=== PATIENT | female | born 1990 | race Caucasian/White ===

== ENCOUNTER 2020-02-20 10:46 | Outpatient (CLI) | payer OTHER ==
[2020-02-20 13:02] LABS: HEMATOCRIT 42.7 % (36-48); HEMOGLOBIN 14.3 g/dL (12.0-16.0); MEAN CORPUSCULAR HEMOGLOBIN 31 pg (27-31); MEAN CORPUSCULAR HGB CONC 33 % (32-36); MEAN CORPUSCULAR VOLUME 93 fL (79.0-98.0); PLATELET COUNT (AUTO) 338 K/uL (130-430); RED BLOOD CELL COUNT(AUTO) 4.58 MIL/uL (4.2-6.2); RED CELL DISTRIBUTION WIDTH 12.4 % (9.0-15.0); WHITE BLOOD COUNT (AUTO) 8.1 K/uL (4.8-10.8)
[2020-02-20 13:26] LABS: ALBUMIN 4.2 g/dL (3.4-4.8); CALCIUM 9.3 mg/dL (8.4-11.0); CREATININE 0.85 mg/dL (0.55-1.30); POTASSIUM 3.7 mmol/L (3.5-5.1); THYROID STIMULATING HORMONE 1.55 uIu/mL (0.34-4.82); TOTAL BILIRUBIN 0.5 mg/dL (0.0-1.0)
== END 2020-02-20 20:05 | disposition home or self-care (01) ==
LOC: SLB 10:46
PROVIDERS: ATTEND General Practice
DX: Z00.00 Encounter for general adult medical examination without abnormal findings (principal)
CPT/HCPCS: 36415; 80053; 80061; 82306; 83051; 84443-TC; 85014-TC; 85048; 85049-TC

== ENCOUNTER 2020-11-14 12:10 | Emergency (ER) | payer OTHER ==
[~2020-11-14] VITALS: Ht 170.2 cm; Wt 69.4 kg
[2020-11-14 12:16] VITALS: BP_SYST 120
[2020-11-14] MEDS ORDERED: ONDANSETRON HCL 4 MG/2 ML VIAL IVP ONE (12:45)
[2020-11-14 12:57] LABS: BASOPHILS % (AUTO) 0.3 % (0.0-2.0); EOSINOPHILS # (AUTO) 0.1 K/uL (0.0-0.4); EOSINOPHILS % (AUTO) 1.5 % (0.0-4.0); HEMATOCRIT 36.4 % (36-48); HEMOGLOBIN 12.8 g/dL (12.0-16.0); LYMPHOCYTES # (AUTO) 1.4 K/uL (1.0-5.5); LYMPHOCYTES % (AUTO) 16.1 % (20.5-51.5); MEAN CORPUSCULAR HEMOGLOBIN 32 pg (27-31); MEAN CORPUSCULAR HGB CONC 35 % (32-36); MEAN CORPUSCULAR VOLUME 91 fL (79.0-98.0); MONOCYTES # (AUTO) 0.5 K/uL (0.0-1.0); MONOCYTES % (AUTO) 5.1 % (1.7-9.3); NEUTROPHILS # (AUTO) 6.7 K/uL (1.8-7.7); PLATELET COUNT (AUTO) 315 K/uL (130-430); RED BLOOD CELL COUNT(AUTO) 3.99 MIL/uL (4.2-6.2); RED CELL DISTRIBUTION WIDTH 12.6 % (9.0-15.0); WHITE BLOOD COUNT (AUTO) 8.8 K/uL (4.8-10.8)
[2020-11-14 13:11] LABS: ANION GAP 10 (5-15); CHLORIDE 102 mmol/L (98-107); CREATININE 0.78 mg/dL (0.55-1.30); GLUCOSE 86 mg/dL (70-99); POTASSIUM 3.9 mmol/L (3.5-5.1); SODIUM SERUM 137 mmol/L (136-145); UREA NITROGEN, BLOOD 7 mg/dL (8-21)
[2020-11-14 13:17] LABS: GFR AFRICAN AMERICAN 112 mL/min (>90)
[2020-11-14 13:44] LABS: ACETONE, SERUM NEGATIVE (NEGATIVE)
[2020-11-14 13:46] LABS: ALANINE AMINOTRANSFERASE 28 U/L (12-78); ALBUMIN 3.5 g/dL (3.4-4.8); AMYLASE 59 U/L (0-100); ASPARTATE AMINOTRANSFERASE 16 U/L (10-37); HCG,QUANTITATIVE 87259 mIU/ML (0-6); LIPASE 63 U/L (73-393); TOTAL BILIRUBIN 0.4 mg/dL (0.0-1.0)
[2020-11-14] MEDS ORDERED: NACL 0.9% 1,000 ML IV ONE (14:15)
[2020-11-14] MEDS ORDERED: ONDA-8 TL (14:27)
[2020-11-14 15:00] LABS: BILIRUBIN,URINE NEGATIVE (NEGATIVE); BLOOD, URINE NEGATIVE (NEGATIVE); CLARITY/URINE CLEAR (CLEAR); COLOR,URINE YELLOW (YELLOW); GLUCOSE,URINE NEGATIVE (NEGATIVE); KETONES,URINE TRACE (NEGATIVE); LEUKOCYTE ESTERASE ,URINE 2+ (NEGATIVE); NITRITE, URINE NEGATIVE (NEGATIVE); PH,URINE 5.5 (5.0-8.0); PROTEIN URINE NEGATIVE (NEGATIVE); UROBILINOGEN,URINE 0.2 (0.2-1.0)
[2020-11-14 15:07] LABS: BACTERIA,URINE FEW /HPF (None Seen); MUCUS,URINE 1+ /LPF (None Seen); RBC,URINE 0-3 /HPF (0-3)
[2020-11-14 15:30] VITALS: BP_SYST 120
== END 2020-11-14 14:54 | disposition home or self-care (01) ==
LOC: SED 12:10
DX: O21.0 Mild hyperemesis gravidarum (principal); Z3A.12 12 weeks gestation of pregnancy
CPT/HCPCS: 36415; 76805; 80053; 81000; 81025; 82009; 82150; 83605; 83690; 84702; 85025; 87086; 96361; 96374; 99284; J2405; J7030

== ENCOUNTER 2020-11-17 16:01 | Observation (INO) | payer OTHER, SELFPAY ==
[~2020-11-17] VITALS: Ht 170.2 cm; Wt 69.4 kg
[~2020-11-17 16:01] MED LIST: ONDA-8 TL
--- NOTE | 2020-11-17 16:55 | NUR ---
Request for home health sent to [facility]-they will need insurance authorization to provide service-will be able to process [phone]
[2020-11-17] MEDS ORDERED: COMMUNICATION ORDER XX ONE (17:30)
--- NOTE | 2020-11-17 17:45 | NUR ---
ADMISSION: RECEIVED PT FROM HOME, DIRECT ADMIT, ALERT, ORIENTED X4, DX:FLUID VOLUME DEFICIT, R/T SEVERE DEHYDRATION, HYPEREMESIS, AFEBRILE, VSS, NO C/O PAIN OR DISCOMFORT, BREATH SOUNDS ARE CLEAR, BREATHING UNLABORED, ORIENTED TO UNIT, CALL LIGHT PLACED WITHIN REACH, WILL CONT' TO MONITOR AND ASSESS.
--- NOTE | 2020-11-17 17:55 | NUR ---
MIDLINE INSERTION: IV MIDLINE INSERTED TO SANYA USING ASEPTIC TECHNIQUE, PER ORDERED BY Yessica, TOLERATED WELL, WILL CONT' WITH POC.
[2020-11-17 18:00] VITALS: BP_SYST 104
--- NOTE | 2020-11-17 19:30 | NUR ---
Opening note Received patient awake, AOx4, resting in bed. No distress and nonlabored breathing on room air watching t.v. IVF Infusing via IV on left upper arm. Bed is locked in lowest position, call light w/in reach. Updated board.
[2020-11-17] MEDS ORDERED: TEMAZEPAM 7.5 MG CAPSULE PO PRN (19:45)
[2020-11-17 20:00] VITALS: BP_SYST 103
--- NOTE | 2020-11-17 20:00 | NUR ---
IV ADMINISTRATION END TIME (Observation Patients ONLY): IV infusion of LR 500ML started at 184 and ended at 1999.
--- NOTE | 2020-11-17 20:00 | NUR ---
IVF Hung new bag of LR (1000 ml) and infusing as ordered at 250 ml/hr, no infiltration, tolerating.
[2020-11-17] MEDS: LR 1,000 ML IV SCH (20:08)
[2020-11-17] MEDS ORDERED: LR 500 ML IV SCH (21:00)
[2020-11-17] MEDS: ONDANSETRON HCL 4 MG/2 ML VIAL IVP PRN (21:37)
--- NOTE | 2020-11-17 21:37 | NUR ---
nausea c/o nausea and Zofran given as ordered
[2020-11-18 00:10] VITALS: BP_SYST 103
--- NOTE | 2020-11-18 00:28 | NUR ---
IV ADMINISTRATION END TIME (Observation Patients ONLY): IV infusion of LR 1000ML started at 2007 (11/17/20) and ended at 27.
[2020-11-18] MEDS: LR 1,000 ML IV SCH ×4 (00:30→12:02)
--- NOTE | 2020-11-18 00:30 | NUR ---
IVF hung new bag of LR at 250 ml/hr
--- NOTE | 2020-11-18 04:26 | NUR ---
IV ADMINISTRATION END TIME (Observation Patients ONLY): IV infusion of LR 1000ML started at 0030 and ended at 0426.
--- NOTE | 2020-11-18 04:29 | NUR ---
IVF start Hung new bag of LR 1000ml, infusing at 250 ml/hr.
[2020-11-18] MEDS: ONDANSETRON HCL 4 MG/2 ML VIAL IVP PRN ×4 (04:34→16:25)
--- NOTE | 2020-11-18 04:34 | NUR ---
nausea c/o nausea and Zofran given as ordered
[2020-11-18 06:24] LABS: ALBUMIN 2.8 g/dL (3.4-4.8); CALCIUM 8.5 mg/dL (8.4-11.0); CREATININE 0.63 mg/dL (0.55-1.30); POTASSIUM 3.7 mmol/L (3.5-5.1); TOTAL BILIRUBIN 0.4 mg/dL (0.0-1.0)
[2020-11-18 06:31] LABS: BASOPHILS % (AUTO) 0.5 % (0.0-2.0); EOSINOPHILS # (AUTO) 0.2 K/uL (0.0-0.4); EOSINOPHILS % (AUTO) 1.7 % (0.0-4.0); HEMATOCRIT 31.9 % (36-48); HEMOGLOBIN 11.2 g/dL (12.0-16.0); LYMPHOCYTES # (AUTO) 2.7 K/uL (1.0-5.5); LYMPHOCYTES % (AUTO) 29.1 % (20.5-51.5); MEAN CORPUSCULAR HEMOGLOBIN 32 pg (27-31); MEAN CORPUSCULAR HGB CONC 35 % (32-36); MEAN CORPUSCULAR VOLUME 92 fL (79.0-98.0); MONOCYTES # (AUTO) 0.6 K/uL (0.0-1.0); MONOCYTES % (AUTO) 6.9 % (1.7-9.3); NEUTROPHILS # (AUTO) 5.8 K/uL (1.8-7.7); NEUTROPHILS % (AUTO) 61.8 % (40.0-70.0); PLATELET COUNT (AUTO) 297 K/uL (130-430); RED BLOOD CELL COUNT(AUTO) 3.46 MIL/uL (4.2-6.2); RED CELL DISTRIBUTION WIDTH 12.6 % (9.0-15.0); WHITE BLOOD COUNT (AUTO) 9.4 K/uL (4.8-10.8)
--- NOTE | 2020-11-18 07:12 | NUR ---
CLOSING NOTE ENDORSED CARE, PATIENT STABLE, NEEDS MET THROUGHOUT SHIFT.
--- NOTE | 2020-11-18 07:13 | NUR ---
OPENING NOTE RECEIVED SBAR FROM NIGHT RN, PATIENT IN BED RESPIRATIONS EVEN, NON LABORED BED IN LOW AND LOCKED POSITION CALL LIGHT WITHIN REACH
[2020-11-18 08:00] VITALS: BP_SYST 104
--- NOTE | 2020-11-18 08:25 | NUR ---
IV ADMINISTRATION END TIME (Observation Patients ONLY): IV infusion of LR started at 428 and ended at 824
--- NOTE | 2020-11-18 08:29 | NUR ---
IVF start hung new bag of IVF LR, 1000Ml.
--- NOTE | 2020-11-18 10:39 | NUR ---
nurse note patient in bed, respirations even, non labored, bed in low and locked position call light within reach, denies any pain
[2020-11-18 11:47] VITALS: BP_SYST 102
--- NOTE | 2020-11-18 12:00 | NUR ---
IV ADMINISTRATION END TIME (Observation Patients ONLY): IV infusion of LR started at 0820 and ended at 1200.
--- NOTE | 2020-11-18 12:03 | NUR ---
IVF Started IVF LR 1000ML.
[2020-11-18 16:00] VITALS: BP_SYST 108
--- NOTE | 2020-11-18 16:07 | NUR ---
Patient to discharge to home with [facility] to provide IVF and IV zofran [phone]. [facility] for [facility] [place] and [facility] care [phone]
[2020-11-18 17:13] VITALS: BP_SYST 110
[2020-11-18] MEDS ORDERED: Lactated Ringers (17:25)
[2020-11-18] MEDS ORDERED: [UNRECOGNIZED DRUG - CODE] IV (17:29)
--- NOTE | 2020-11-18 17:29 | NUR ---
orders spoke with dr Miguel Ángel galeano to discharge patient now that home health care is in place
[2020-11-18] MEDS ORDERED: ONDANSETRON IVP (17:35)
--- NOTE | 2020-11-18 18:24 | NUR ---
D/C Patient Patient given medication reconciliation form and D/C instructions. Exit Care provided. Patient verbalized understanding. MD discussed with patient the results and treatment provided. Ambulatory with steady gait for discharge to home. Patient in stable condition, left with a left upper arm PICC line. Patient educated on pain management. All belongings sent with patient. Wheeled patient out to parking lot via wheel chair to awaiting car.
--- NOTE | 2020-11-26 10:09 | NUR ---
IV ADMINISTRATION END TIME (Observation Patients ONLY): Late Entry: IV infusion of LR at 250ml started at and ended at . Addendum: 11/27/20 at 0935 by Renan Ramos RN IV infusion of LR at 250ml started on 11/18 at 1202 was completed and discontinued at 1600
== END 2020-11-18 18:25 | disposition home health service (06) ==
LOC: OBSVTOIN 16:01 → INTOOBSV 16:01 → SMU 16:01
PROVIDERS: ADMIT Specialist; ATTEND Specialist
DX: O21.1 Hyperemesis gravidarum with metabolic disturbance (principal); Z20.822 Contact with and (suspected) exposure to COVID-19; O99.281 Endocrine, nutritional and metabolic diseases complicating pregnancy, first trimester; E86.0 Dehydration; O26.891 Other specified pregnancy related conditions, first trimester; R63.4 Abnormal weight loss; Z3A.12 12 weeks gestation of pregnancy; Z91.19 Patient's noncompliance with other medical treatment and regimen; Z79.899 Other long term (current) drug therapy
CPT/HCPCS: 36415; 80053; 85025; 87426; 96361 ×2; 96374; 96376; C1751; G0378 ×2; J2405 ×2; J7120 ×2